=== PATIENT | male | born 1960 | race Caucasian/White ===

== ENCOUNTER 2016-05-28 03:25 | Emergency (ER) | payer BC, OTHER ==
[~2016-05-28] VITALS: Ht 185.4 cm; Wt 92.1 kg
--- NOTE | ~2016-05-28 | EKG ---
[place] [address] [facility] [employer] [place] [address] ELECTROCARDIOGRAM REPORT Name: YANY MCKEON Room #: ODIN Means#: [id number] Admission: 05/28/16 Attend Phys: Discharge: 05/28/16 Date of : 64 Report #: [id number] THIS REPORT FOR: //name// [facility] ED Test Date: 2016-05-28 Test Time: 03:33:50 Pat Name: YANY MCKEON Department: Room: Gender: M [employer]: JORDANA : 1960 Requested By: Katherine Barboza Order Number: [id number] MD: Aldo Brooks Measurements Intervals [place] Rate: 65 P: 3 DC: 168 QRS: -19 QRSD: 98 T: 27 QT: 391 QTc: 407 Interpretive Statements Sinus rhythm No significant abnormality No previous ECG available for comparison Electronically Signed On 05-29-2016 13:30:47 EDGE SETTER by Aldo Brooks [email or web address] <ELECTRONICALLY SIGNED> By: Aldo Brooks MD, [facility] 05/29/16 1330 [id number] Aldo Brooks MD, FACC /EPI
[2016-05-28] MEDS ORDERED: FLOMAX0.4 MG PO (03:37)
[2016-05-28] MEDS ORDERED: TOPROL XL100 MG PO (03:37)
[2016-05-28] MEDS ORDERED: ATORVASTATIN CA40 MG PO (03:37)
[2016-05-28] MEDS ORDERED: PLAVIX 75 MG TA75 M1 PO (03:37)
[2016-05-28] MEDS ORDERED: ASPIR 8181 MG PO (03:37)
[2016-05-28 04:05] LABS: ABSOLUTE NEUTROPHILS 5.1 thou/uL (1.4-8.2); BASOPHILS 0.7 % (0.0-2.0); EOSINOPHILS 1.8 % (0.0-3.0); HEMATOCRIT 43.4 % (42.0-52.0); HEMOGLOBIN 14.6 gm/dL (14.0-18.0); LYMPHOCYTES 36.9 % (24.0-44.0); MCH 30.8 pg (26.0-34.0); MCHC 33.5 % (28.0-37.0); MCV 91.9 fL (80.0-100.0); MONOCYTES 8.4 % (1.0-8.0); PLATELET COUNT 239 thou/uL (150-400); POLYS 52.2 % (36.0-66.0); RBC 4.72 mil/uL (4.50-6.00); RDW 13.3 % (10.5-14.5); WBC 9.7 thou/uL (4.0-11.0)
[2016-05-28 04:08] LABS: MANUAL DIFF NO
[2016-05-28 04:35] LABS: CALCIUM 8.6 mg/dL (8.5-10.1); CREATININE 0.8 mg/dL (0.6-1.3)
[2016-05-28 04:36] LABS: URINE BILIRUBIN NEGATIVE (Negative); URINE BLOOD TRACE (Negative); URINE COLOR YELLOW; URINE GLUCOSE-RANDOM* NEGATIVE (Negative); URINE KETONES NEGATIVE (Negative); URINE LEUKOCYTES-REFLEX NEGATIVE (Negative); URINE PROTEIN (DIPSTICK) NEGATIVE (Negative); URINE UROBILINOGEN 0.2 E.U./dl (0.2-1.0)
[2016-05-28 04:50] LABS: ALBUMIN 3.8 g/dL (3.4-5.0); TOTAL BILIRUBIN 0.6 mg/dL (<0.1-1.0); TOTAL PROTEIN 7.2 g/dL (6.4-8.2)
[2016-05-28 05:36] LABS: POTASSIUM 4.1 mmol/L (3.5-5.1)
[2016-05-28] MEDS ORDERED: IBUPROFEN 800800 M1 PO (06:23)
[2016-05-28] MEDS ORDERED: HYDROCODONE-AP1 EAC6 PO (06:23)
[2016-05-28 06:42] VITALS: BP 109/76
== END 2016-05-28 06:43 | disposition home or self-care (01) ==
LOC: ER 03:25
PROVIDERS: Emergency Medicine
DX: R10.11 Right upper quadrant pain (principal); I10 Essential (primary) hypertension; Z95.5 Presence of coronary angioplasty implant and graft; F10.99 Alcohol use, unspecified with unspecified alcohol-induced disorder